=== PATIENT | female | born 2000 | race Caucasian/White ===

== ENCOUNTER 2021-02-09 12:45 | Outpatient (CLI) | payer MEDICAID, SELFPAY ==
[2021-02-09 13:00] VITALS: BP 124/77; PULSE 106
[2021-02-09 13:01] VITALS: RESP 18
[2021-02-09 13:03] VITALS: TEMP 28.4; TEMP 36.2; BMI 36.6
[2021-02-09 13:16] VITALS: BP 117/65; PULSE 103
[2021-02-09 13:31] VITALS: BP 118/67; PULSE 92
[2021-02-09 13:33] LABS: Total Volume, Urine 1400 mL; Urine Total Protein 9.5 mg/24HR (0-150)
== END 2021-02-09 13:50 | disposition home or self-care (01) ==
LOC: OPOB 12:50 → OBGYN 12:51
PROVIDERS: PCP Family Medicine; Visit Provider Family Medicine
DX: O16.9 Unspecified maternal hypertension, unspecified trimester (principal); Z3A.00 Weeks of gestation of pregnancy not specified
CPT/HCPCS: 59025; 84156; 99211

== ENCOUNTER → 2021-03-05 08:37 | Day surgery (SDC) | payer MEDICAID, SELFPAY ==
[2021-03-05 08:50] VITALS: BP 145/88; PULSE 103; RESP 18; TEMP 36.4; O2SAT 99
[2021-03-05 10:15] VITALS: BP 113/63; PULSE 105; RESP 18; TEMP 36.6; O2SAT 98
== END ==
PROVIDERS: PCP Family Medicine; Visit Provider Family Medicine
DX: O26.892 Other specified pregnancy related conditions, second trimester (principal); Z3A.00 Weeks of gestation of pregnancy not specified; Z67.91 Unspecified blood type, Rh negative
CPT/HCPCS: 36415; 36430; 86850; 86900; 90384; 96372

== ENCOUNTER 2021-05-09 18:44 | Outpatient (CLI) | payer MEDICAID, SELFPAY ==
[2021-05-09 18:40] VITALS: RESP 17
[2021-05-09 19:00] VITALS: BMI 37.7
[2021-05-09 19:02] VITALS: BP 121/68; PULSE 87
[2021-05-09 19:17] VITALS: BP 113/63; PULSE 77
[2021-05-09 19:32] VITALS: BP 118/67; PULSE 89
[2021-05-09 19:40] VITALS: BP 118/67; PULSE 89
== END 2021-05-09 19:40 | disposition home or self-care (01) ==
LOC: OPOB 18:45 → OBGYN 18:53
PROVIDERS: PCP Family Medicine; Visit Provider Family Medicine
DX: O26.899 Other specified pregnancy related conditions, unspecified trimester (principal); Z3A.00 Weeks of gestation of pregnancy not specified
CPT/HCPCS: 59025

== ENCOUNTER 2021-05-19 07:50 | Inpatient (IN) | payer MEDICAID, SELFPAY ==
[2021-05-19] VITALS (95 sets, daily range): BP systolic 95–171; BP diastolic 53–98; PULSE 61–125; RESP 16–18; TEMP 36–36.9; O2SAT 96–100; BMI 37.5
[2021-05-19] MEDS: dextrose 5%-lactated ringers 1,000 ML 125 ML IV ×3 (08:45→23:59)
[2021-05-19] MEDS: oxytocin 30 UNIT/500 ML BAG IV (08:45)
[2021-05-19 08:54] LABS: Basophils % 0.2 %; Eosinophils % 0.2 %; Hematocrit 33.9 % (37.0-47.0); Hemoglobin 10.6 g/dL (11.5-15.3); Lymphocytes # 1.2 10^3/uL (1.5-6.5); Lymphocytes % 15.5 %; Mean Corpuscular HGB Conc 31.3 g/dL (30.0-36.0); Mean Corpuscular Hemoglobin 23.8 pg (28.0-34.0); Mean Corpuscular Volume 76.2 fl (81-99); Monocytes # 0.5 10^3/uL (0.2-0.9); Neutrophils # 6.22 10^3/uL (1.8-8.0); Neutrophils % 77.7 %; Nucleated Red Blood Cells % 0 %; Platelet Count 201 10^3/cmm (130-400); Red Blood Count 4.45 10^6/uL (4.1-5.3); Red Cell Distribution Width 14.4 % (12.1-15.1)
[2021-05-19] MEDS: ceFAZolin 1,000 MG in sodium chloride 0.9% (plus) 50 ML 100 MG IV ×2 (16:19→23:59)
[2021-05-19] MEDS: fentaNYL 50 mcg/mL INJ 2mL IVP ×3 (17:21→19:21)
--- NOTE | 2021-05-19 17:37 | PM.OPHPUD ---
Labor & Delivery H&P Update Date of Procedure: May 19, 2021 Date H&P Performed: 05/14/21 Admission Diagnosis: IUP at 39 weeks 2 days gestation Gestational diabetes mellitus, relatively diet controlled Other information: This is a 21-year-old G1, P0 at 39 weeks 2 days gestation who is here for induction secondary to gestational diabetes mellitus, somewhat diet controlled.. The patient was noncomplient in getting her follow-up testing for her abnormal 1 hour GT in a timely fashion. She had work and transportation excuses. when she did finally present for her 3-hour glucose tolerance test she then vomited up the drink. At that point she was 36 weeks 5d gestation and was started on 4 times daily Accu-Cheks. Her Accu-Cheks were somewhat out of range with several fastings greater than 95 and several 1 hour postprandials greater than 140. She began twice weekly NSTs. She was already 38 weeks 5 days gestation and decision was made to go ahead and proceed with induction at 39 weeks.
[2021-05-19] MEDS: lactated ringers 1,000 ML 999 ML IV ×2 (18:03→19:17)
--- NOTE | 2021-05-19 19:27 | ANES.PREANE2 ---
Pre-Anesthetic Assessment Height/Weight: Height 1.6 m Weight 96.162 kg Temp Pulse Resp BP Pulse Ox 97.1 F L 86 16 143/76 100 05/19/21 19:00 05/19/21 19:10 05/19/21 19:21 05/19/21 19:10 05/19/21 17:21 Preop Diagnosis: labor pain epidural Familial anesthetic complications: none Was Beta Jennifer taken within 24 hours: N/A Was Clonidine taken within 24 hours: N/A Social No alcohol and No tobacco Exam alert, oriented x 3, clear to auscultation bilaterally and regular rate & rhythm Airway Submandibular: within normal limits Cervical ROM: within normal limits Mallampati: Class II Dentition: full (poor) History/ROS Other Pulmonary None reported CV/HEM None reported None reported Hepatic None reported GI None reported Metabolic Diabetes Mellitus (Gestational) Musc/skel None reported Neuropsych None reported Anesthetic Plan ASA status: 2 Anesthesia: Regional (specify below) Risk of > 500 ml blood loss (7ml/kg in children): No Medications/Allergies Home Medications Medication Instructions Recorded Confirmed Last Taken Type [id number]-[id number]-[id number]-FA 1 mg 1 tab PO DAILY 03/05/21 05/09/21 05/09/21 08:00 History tablet Allergies Allergy/AdvReac Type Severity Reaction Status Date / Time aspirin Allergy ALGY-Hives Verified 03/05/21 08:53 Penicillins Allergy ADR-Anxiety Verified 05/19/21 09:21 Current Medications Generic Name Dose Route Start Last Admin Trade Name Freq PRN Reason Stop Dose Admin Fentanyl 25 - 100 mcg 05/19/21 13:34 05/19/21 19:21 Fentanyl 50 Mcg/Ml Inj 2ml IVP 75 mcg Q1H PRN Administration SEVERE PAIN Lactated Ringer's 1,000 mls @ 999 mls/hr 05/19/21 08:20 05/19/21 19:17 Lactated Ringers IV 999 mls/hr .Q1H1M PRN Administration BLEEDING Dextrose/Lactated Ringer's 1,000 mls @ 125 mls/hr 05/19/21 08:30 05/19/21 16:20 Dextrose 5%-Lactated Ringers IV 125 mls/hr .Q8H SILVIA Administration Oxytocin 30 unit in 500 mls @ 1 mls/hr 05/19/21 08:30 05/19/21 12:46 Pitocin IV 20 milliunit/min .Q24H SILVIA 20 mls/hr Titration Protocol 1 MILLIUNIT/MIN Cefazolin Sodium 1,000 mg/ 50 mls @ 100 mls/hr 05/19/21 16:30 05/19/21 19:02 Sodium Chloride IV Infused Q8H SILVIA Infusion Protocol Lactated Ringer's 1,000 mls @ 999 mls/hr 05/19/21 17:57 05/19/21 19:12 Lactated Ringers IV Infused .Q1H1M PRN Infusion See label comments PFSH Anesthesia Family History (Updated 05/19/21 @ 09:20 by Lexie Cobb RN) Mother Diabetes Hypertension Father Diabetes Hypertension Female Reproductive History : 1 Data Anesthesia : 05/19/21 08:32 Short CBC 05/19/21 Range/Units 08:32 WBC 8.0 (4.5-13.0) 10^3/uL Hgb 10.6 L (11.5-15.3) g/dL Hct 33.9 L (37.0-47.0) % MCV 76.2 L (81-99) fl Plt Count 201 (130-400) 10^3/cmm Neut % (Auto) 77.7 % Neut # (Auto) 6.22 (1.8-8.0) 10^3/uL Cardiac Studies: No Data to Display
--- NOTE | 2021-05-19 20:00 | ANES.PROC ---
Anesthesia Procedures Procedure/Date: 05/19/21 epidural Procedure Narrative: epidural complete, bolus given, epidural pump initiated with PORTRAIT PHOTOGRAPHER education given, vitals taken during procedure using OBIX system and satisfactory throughout, patient admits to decrease pain, report of procedure to OB RN Epidural: Time Out Performed: Yes Consents Signed: Procedure Consent Consent: requested by attending/covering physician, from patient, risks and benefits reviewed and patient agrees to proceed Lumbar Level: L3-L4 Epidural position: sitting Epidural procedure: sterile prep of area, 1% lidocaine to numb the area (3 mL), 18 g needle, negative for paresthesia passed, neg for paresthesia, test dose given, 1.5% xylocaine 1:200k epi (5 mL), 0.2% Ropivacaine bolus ml (5 mL), placed PCEA, no systemic response, sterile dressing applied, L.U.D. no apparent complications and 0.2% Ropiavacaine @ mls/hr (13 mL/hr)
[2021-05-20] VITALS (32 sets, daily range): BP systolic 96–142; BP diastolic 54–94; PULSE 75–134; RESP 16–17; TEMP 36.6–36.9
--- NOTE | 2021-05-20 04:31 | P.PCNOB_ITS ---
Delivery Note: Date of delivery: May 20, 2021 Pre-delivery diagnoses: IUP at 39 weeks 3 days gestation Gestational diabetes mellitus relatively diet controlled Procedure: Normal vaginal delivery Delivering Physician: Rylee Solano MD Estimated blood loss (mL): 200 Delivery: This is a 21-year-old at 39 weeks 2 days gestation who presented for induction secondary to gestational diabetes mellitus, mostly diet controlled. Her cervix was favorable and she was started on Pitocin. She underwent artificial rupture of membranes with a copious amount of clear fluid. She received an epidural for pain management. She had a normal spontaneous vaginal delivery of a viable female weight 7 pounds 11 ounces, 3480 g over an intact perineum. The infant was suctioned at delivery and placed on the mother's abdomen. The cord was very short. It was clamped and then spontaneously avulsed. The was very gurgly so she was immediately taken to the warmer. Cord blood was obtained. The placenta was then delivered using gentle traction. The placenta was grossly intact and normal to inspection. There was a first-degree right labial laceration that was sutured using 3-0 chromic. Coding Level of Care Code Acute Security Shift Manager for Ty Arellano
[2021-05-20] MEDS: oxytocin 30 UNIT/500 ML BAG 600 UNIT IV (05:04)
[2021-05-20] MEDS: benzocaine-menthol 78 gm Canister 1 SPRAY TOPICAL (05:04)
[2021-05-20] MEDS: lanolin oint 7 gm 1 APPLIC TOPICAL (05:04)
--- NOTE | 2021-05-20 08:10 | PC.NURSE ---
pt up to bathroom with minimal assistance. void not measured with hat, pt states moderate amount. cristine care instruction provided. pad and gown changed.
[2021-05-20] MEDS: docusate sodium 100 mg Capsule PO (09:33)
[2021-05-20] MEDS: ibuprofen 800 mg tablet PO ×2 (09:33→15:59)
[2021-05-20] MEDS: prenatal vitamin Capsule 1 CAP PO (09:34)
--- NOTE | 2021-05-20 13:28 | PC.NURSE ---
pt ambulated to OB9, oriented to room and call light. fresh ice water given.
[2021-05-20 17:03] LABS: Hematocrit 26.1 % (37.0-47.0); Mean Corpuscular HGB Conc 30.7 g/dL (30.0-36.0); Mean Corpuscular Hemoglobin 23.8 pg (28.0-34.0); Mean Corpuscular Volume 77.7 fl (81-99); Mean Platelet Volume 12.6 fL (7.4-10.4); Platelet Count 155 10^3/cmm (130-400); Red Blood Count 3.36 10^6/uL (4.1-5.3); Red Cell Distribution Width 14.7 % (12.1-15.1); White Blood Count 8.1 10^3/uL (4.5-13.0)
[2021-05-21] MEDS: acetaminophen 325 mg Tablet 650 MG PO (03:27)
[2021-05-21 03:29] VITALS: BP 147/87; PULSE 110; TEMP 36.6
[2021-05-21] MEDS: ibuprofen 800 mg tablet PO ×3 (08:58→21:15)
[2021-05-21] MEDS: docusate sodium 100 mg Capsule PO (08:58)
[2021-05-21] MEDS: prenatal vitamin Capsule 1 CAP PO (08:58)
[2021-05-21 10:15] VITALS: BP 138/80; PULSE 80; RESP 18; TEMP 36.7; O2SAT 99
--- NOTE | 2021-05-21 14:08 | ANE.PACU2 ---
Inpatient post-anesthesia follow up: Airway intact: Yes Vital signs: Temperature 98.0 F Pulse Rate 80 Respiratory Rate 18 Blood Pressure 138/80 Pulse Oximetry 99 Oxygen Delivery Me thod Room Air Oxygen Flow Rate Fraction of Inspir ed Oxygen Hydration adequate: Yes Nausea and vomiting: No Pain level: 3 Mental status: Baseline
--- NOTE | 2021-05-21 14:48 | P.PN_ITS ---
Subjective Subjective: The patient is ambulating, tolerating a regular diet, and is wanting to be discharged home. Vitals/I&O/Wt Last Vital Signs Temp 98.0 F 05/21/21 10:15 Pulse 80 05/21/21 10:15 Resp 18 05/21/21 10:15 BP 138/80 05/21/21 10:15 Pulse Ox 99 05/21/21 10:15 05/20/21 05/21/21 05/21/21 22:59 06:59 14:59 Intake Total 0 / 0 Output Total 400 / 750 Balance -400 / -750 0 / -750 Physical Exam Narrative: Alert and oriented, sitting in bed. Pupils equal round reactive to light, extraocular movements intact, heart regular rate and rhythm, lungs clear to auscultation bilaterally, abdomen is soft and nontender, fundus is firm, Urinary Catheter Management: Fragoso Latex: Cath Placed During This Visit: yes, but has since been removed by the nurse Reason for Continuing Indwelling Catheter: Decision to DC Catheter Urinary Catheter Date of Insertion: 05/19/21 Urinary Catheter Time of Insertion: 20:40 Date Urinary Catheter Removed: 05/20/21 Time Urinary Catheter Discontinued: 03:03 Data : 05/20/21 16:50 A&P Assessment and plan (1) Status post normal vaginal delivery: Routine care. Status: Acute Attestations Medical Necessity Statement*: Routine care Coding Level of Care Code Acute Data Entry Machine Operator for Chg Fwd Diagnoses Status post normal vaginal delivery
[2021-05-21 21:20] VITALS: BP 130/84; PULSE 80; RESP 14; O2SAT 100
[2021-05-22 04:00] VITALS: BP 145/91; PULSE 82; RESP 14
[2021-05-22] MEDS: ibuprofen 800 mg tablet PO (08:15)
[2021-05-22] MEDS: prenatal vitamin Capsule 1 CAP PO (08:15)
[2021-05-22] MEDS: docusate sodium 100 mg Capsule PO (08:17)
[2021-05-22 09:19] VITALS: BP 133/84; PULSE 66; RESP 17; TEMP 36.7
--- NOTE | 2021-05-22 13:06 | P.DS_ITS ---
Discharge Providers Date of Admission: 05/19/21 07:50 Date of Discharge: May 22, 2021 Attending Provider at Admission: Rylee Solano MD Attending Provider at Discharge: Rylee Solano MD Primary Care Provider: Emmanuel Freeman MD Diagnoses at Discharge Discharge Diagnosis (1) Status post normal vaginal delivery: Status: Acute Reason for Visit Reason for Visit: gestational hypertension and diabetes Hospital Course Hospital Course This is a 21-year-old G1 now P1 who was admitted for induction at 39 weeks 2 days gestation secondary to diet-controlled gestational diabetes mellitus. She had a normal spontaneous vaginal delivery of a viable female infant. She did well . She was ambulating, tolerating a regular diet, had minimal vaginal bleeding and was requesting discharge home Physical Exam Narrative: Alert and oriented alert and oriented, abdomen is soft and nontender, extremities have nonpitting edema, no calf tenderness. Urinary Catheter Management: Fragoso Latex: Cath Placed During This Visit: yes, but has since been removed by the nurse Reason for Continuing Indwelling Catheter: Decision to DC Catheter Urinary Catheter Date of Insertion: 05/19/21 Urinary Catheter Time of Insertion: 20:40 Date Urinary Catheter Removed: 05/20/21 Time Urinary Catheter Discontinued: 03:03 Discharge Data Studies Completed and Pending Laboratory Results WBC 8.1 10^3/uL (4.5-13.0) 05/20/21 16:50 RBC 3.36 10^6/uL (4.1-5.3) L 05/20/21 16:50 Hgb 8.0 g/dL (11.5-15.3) L 05/20/21 16:50 Hct 26.1 % (37.0-47.0) L 05/20/21 16:50 MCV 77.7 fl (81-99) L 05/20/21 16:50 MCH 23.8 pg (28.0-34.0) L 05/20/21 16:50 MCHC 30.7 g/dL (30.0-36.0) 05/20/21 16:50 RDW 14.7 % (12.1-15.1) 05/20/21 16:50 Plt Count 155 10^3/cmm (130-400) 05/20/21 16:50 MPV 12.6 fL (7.4-10.4) H 05/20/21 16:50 Neut % (Auto) 77.7 % 05/19/21 08:32 Lymph % (Auto) 15.5 % 05/19/21 08:32 [place] % (Auto) 6.0 % 05/19/21 08:32 Eos % (Auto) 0.2 % 05/19/21 08:32 Baso % (Auto) 0.2 % 05/19/21 08:32 Neut # (Auto) 6.22 10^3/uL (1.8-8.0) 05/19/21 08:32 Lymph # (Auto) 1.2 10^3/uL (1.5-6.5) L 05/19/21 08:32 [place] # (Auto) 0.5 10^3/uL (0.2-0.9) 05/19/21 08:32 Eos # (Auto) 0.0 10^3/uL (0.0-0.8) 05/19/21 08:32 Baso # (Auto) 0.0 10^3/uL (0.0-0.1) 05/19/21 08:32 Nucleated RBC % (auto) 0 % 05/19/21 08:32 Nucleated RBCs # 0.0 /100WBC 05/19/21 08:32 Blood Type AB Negative 05/19/21 08:32 Rho(D) Type Negative 05/19/21 08:32 Antibody Screen Negative 05/19/21 08:32 Screen Negative (Negative) 05/20/21 16:50 Vitals Last Vital Signs Temp 98.0 F 05/22/21 09:19 Pulse 66 05/22/21 09:19 Resp 17 05/22/21 09:19 BP 133/84 05/22/21 09:19 Pulse Ox 100 05/21/21 21:20 Discharge Plan Discharge Patient Disposition: Home Condition: Stable Prescriptions: Continued 1 mg Tablet 1 tab PO DAILY 0RF Discharge Orders: Discharge Order (Routine); Ordered 05/22/21 Ordered By: Rylee Solano Referrals: Rylee Solano MD [Physician] - 1 month Discharge Diet: Usual diet Discharge Activity: Limit activity as instructed Patient Instructions: Depression (DC), Bleeding (DC), Preeclampsia and Eclampsia After Delivery (GEN), OB Discharge Report, OB Food/Drug Interaction Guide, OB Care at Home, Opioid Safety, OB Home Care, OB Proud Parent Packet, OB Vaginal Deliveries, Abnormal Bleeding Activity Restrictions/Additional Instructions: NOTHING per vagina for 6 weeks Discharge Attestations Time Spent in Discharge Care*: less than 30 min Quality Metrics Clinical Quality Measures [ No reported AMI, CVA or VTE this stay] Coding Level of Care Code Acute Chg FW DC note Diagnoses Status post normal vaginal delivery
[2021-05-22 14:15] VITALS: BP 132/83; PULSE 99; RESP 18; TEMP 36.7
[2021-05-22 14:20] VITALS: BP 132/83; PULSE 99; RESP 18; TEMP 36.7
== END 2021-05-22 14:20 | disposition home or self-care (01) | DRG 807 ==
LOC: OPOB 08:26 → OBGYN 08:26
PROVIDERS: Admitting Provider Family Medicine; PCP Family Medicine; Visit Provider Family Medicine
DX: O24.420 Gestational diabetes mellitus in childbirth, diet controlled (principal); Z37.0 Single live birth; Z3A.39 39 weeks gestation of pregnancy; O70.0 First degree perineal laceration during delivery; O69.3XX0 Labor and delivery complicated by short cord, not applicable or unspecified
CPT/HCPCS: 36415; 36430; 51702; 59025; 59409; 85025; 85027; 85460; 86850; 86900; 90384; J0690; J2795; J3010

== ENCOUNTER 2024-04-07 16:33 | Emergency (ER) | payer MEDICAID, SELFPAY ==
--- NOTE | 2024-04-07 16:40 | ED_ITS ---
HPI - General: Stated complaint: 10 wk preg spotting Time Seen by Provider: 04/07/24 16:38 History of Present Illness: 24-year-old female G2, P1 presents to [facility] emergency room with complaints of vaginal bleeding Associated symptoms: Deny abdominal pain or dysuria Related Data Home Medications ?Medication ?Instructions ?Recorded ?Confirmed vsrsuyvw-[id number]-Kq-FA 1 mg 1 tab PO DAILY 05/19/21 tablet Allergies Allergy/AdvReac Type Severity Reaction Status Date / Time aspirin Allergy ALGY-Hives Verified 05/19/21 20:49 Penicillins Allergy ADR-Anxiety Verified 05/19/21 20:49 Review of Systems Const: Denies: fever(s) or chills Card: Denies: chest pain Resp: Denies: dyspnea GI: Denies: abdominal pain : Reports: vaginal bleeding; Denies: dysuria, urinary frequency or urinary urgency Musc: Denies: neck pain or back pain Skin/Breast: Denies: rash PFSH ED PFSH: Family History Mother Diabetes Hypertension Father Diabetes Hypertension Physical Exam Const: COMMON NORMALS: no acute distress GENERAL APPEARANCE: cooperative and comfortable ORIENTATION/CONSCIOUSNESS: Yes awake, Yes oriented to person, Yes oriented to place and Yes oriented to time HENMT: COMMON NORMALS: normocephalic, atraumatic and hearing grossly normal bilaterally HEAD & SCALP: normocephalic and atraumatic Resp: COMMON NORMALS: normal respiratory effort, No retractions, No use of accessory muscles and clear to auscultation bilaterally AUSCULTATION: clear to auscultation bilaterally Cardio: COMMON NORMALS: regular rate, regular rhythm and No murmurs present (Cardio) RATE: regular rate RHYTHM: regular rhythm GI: COMMON NORMALS: Soft to palpation and No hepatosplenomegaly present AUSCULTATION: Yes normoactive bowel sounds PALPATION: Yes Soft to palpation, No Tenderness to palpation present (GI), No Guarding due to palpation present (GI) and Yes No hepatosplenomegaly present Extremity: COMMON NORMALS: normal to inspection, capillary refill normal, no clubbing, cyanosis or edema, no calf tenderness and no pedal edema Neuro: SENSORIUM/ORIENTATION: Yes oriented to person, Yes oriented to place and Yes oriented to time Skin: COMMON NORMALS: no rashes or lesions noted GENERAL SKIN EXAM: no rashes or lesions noted MDM - OB/Uterine Contractions Medical Records I reviewed the patient's medical records. Lab Data I reviewed the patient's lab results. Discharge Plan Discharge Condition: Stable Prescriptions: No Action bjpruclu-kjz-Qp-FA 1 mg Tablet 1 tab PO DAILY Referrals: Emmanuel Freeman MD [Primary Care Provider] - Print Language: [place] Citizen Coding Level of Care Code ED Sales Representative Sales Manager for Ty Arellano
[2024-04-07 16:41] VITALS: BP 120/67; PULSE 80; RESP 14; TEMP 36.8; O2SAT 96; BMI 34.5
--- NOTE | 2024-04-07 16:57 | ED_ITS ---
HPI - 2 General: Chief complaint: Vaginal Bleeding Stated complaint: 10 wk preg spotting Time Seen by Provider: 04/07/24 16:38 Source: patient Mode of arrival: ambulatory Limitations: no limitations History of Present Illness: 24-year-old female who states that she i s currently roughly 10 weeks . She states she has an OB appointment next week but has not seen OB yet states that today she started having some vaginal bleeding she denies any abdominal pain denies any fever. She denies passing any clots she denies any worse or improving factors. Associated symptoms: Deny abdominal pain, headache(s), nausea or vomiting Related Data : 2 Home Medications ?Medication ?Instructions ?Recorded ?Confirmed dxmhspqm-kkx-Py-FA 1 mg 1 tab PO DAILY 05/19/21 tablet Allergies Allergy/AdvReac Type Severity Reaction Status Date / Time aspirin Allergy ALGY-Hives Verified 04/07/24 16:45 Penicillins Allergy ADR-Anxiety Verified 04/07/24 16:45 Review of Systems 2 Const: Denies: fever(s), chills, body aches or change in appetite ENMT: Denies: throat pain or dental pain Card: Denies: chest pain Resp: Denies: dyspnea GI: Denies: abdominal pain, nausea, vomiting or diarrhea : Reports: vaginal bleeding Musc: Denies: neck pain or back pain Skin/Breast: Denies: rash Neuro: Denies: headache(s) PFSH ED 2 PFSH: Family History Mother Diabetes Hypertension Father Diabetes Hypertension Female Reproductive History: : 2 Physical Exam 2 Const: COMMON NORMALS: no acute distress, patient oriented x3 and healthy appearing HENMT: COMMON NORMALS: normocephalic and atraumatic HEAD & SCALP: n ormocephalic and atraumatic Eye: COMMON NORMALS: conjunctivae normal CONJUNCTIVA: Yes conjunctivae normal Neck/C-Spine: COMMON NORMALS: full ROM and supple Chest: COMMONS NORMALS: normal inspection of the chest Resp: COMMON NORMALS: normal respiratory effort Cardio: COMMON NORMALS: regular rate, regular rhythm and No murmurs present (Cardio) RATE: regular rate RHYTHM: regular rhythm GI: COMMON NORMALS: Normal to inspection, nondistended, normoactive bowel sounds present, Soft to palpation, non-tender and no masses PALPATION: Yes Soft to palpation Extremity: COMMON NORMALS: normal to inspection and full ROM Neuro: COMMON NORMALS: patient oriented x3, moves all extremities and no focal motor deficits Psych: COMMON NORMALS: mental status grossly normal, Normal thought process present and cooperative THOUGHT PROCESS: Normal thought process present Skin: COMMON NORMALS: no rashes or lesions noted and no wounds GENERAL SKIN EXAM: no rashes or lesions noted Course 2 Vital Signs: Vital signs: Vital Signs Temperature 98.2 F 04/07/24 16:41 Pulse Rate 80 04/07/24 16:41 Respiratory Rate 14 04/07/24 16:41 Blood Pressure 120/67 04/07/24 16:41 Pulse Oximetry 96 04/07/24 16:41 Oxygen Delivery Me thod Room Air 04/07/24 16:41 MDM - OB/Uterine Contractions Medical Decision Making Patient presents with a threatened miscarriage bedside ultrasound here was normal showed an IUP roughly 9 to 10 weeks heart rate was in the 140s she has no signs of ectopic she is stable for discharge she is to follow- up with her PCP check she has OB follow-up next week. She is return if worsening she understands agrees to plan. Medical Records I reviewed the patient's medical records. Lab Data I reviewed the patient's lab results. 04/07/24 16:58 Laboratory Results WBC 4.91 10^3/uL (3.29-11.43) 04/07/24 16:58 RBC 4.62 10^6/uL (3.85-5.65) 04/07/24 16:58 Hgb 10.10 g/dL (11.27-16.99) L 04/07/24 16:58 Hct 33.2 % (36-47) L 04/07/24 16:58 MCV 71.9 fl (85-98) L 04/07/24 16:58 MCH 21.9 pg (27-33) L 04/07/24 16:58 MCHC 30.4 g/dL (30-55) 04/07/24 16:58 RDW 18.6 % (12.1-15.1) H 04/07/24 16:58 Plt Count 188 10^3/cmm (157-399) 04/07/24 16:58 MPV 10.0 fL (7.4-10.4) 04/07/24 16:58 Neut % (Auto) 63.7 % 04/07/24 16:58 Lymph % (Auto) 26.5 % 04/07/24 16:58 [place] % (Auto) 8.8 % 04/07/24 16:58 Eos % (Auto) 0.4 % 04/07/24 16:58 Baso % (Auto) 0.4 % 04/07/24 16:58 Neut # (Auto) 3.13 10^3/uL (1.8-7.7) 04/07/24 16:58 Lymph # (Auto) 1.3 10^3/uL (0.8-4.8) 04/07/24 16:58 [place] # (Auto) 0.4 10^3/uL (0.2-0.9) 04/07/24 16:58 Eos # (Auto) 0.0 10^3/uL (0.0-0.8) 04/07/24 16:58 Baso # (Auto) 0.0 10^3/uL (0.0-0.1) 04/07/24 16:58 Nucleated RBC % (auto) 0 % 04/07/24 16:58 Nucleated RBCs # 0.0 /100WBC 04/07/24 16:58 Ser , Semi-Qnt 05498.00 mIU/mL 04/07/24 16:58 Blood Type AB Negative 04/07/24 16:58 Rho(D) Type Cancelled 04/07/24 16:58 Rho(D) Type Rh negative 04/07/24 16:58 Antibody Screen Negative 04/07/24 16:58 No radiology studies performed this visit Discharge Plan Discharge Patient Disposition: Home Clinical Impression: Threatened miscarriage Condition: Stable Prescriptions: No Action pwltxrfk-jjc-Eh-FA 1 mg Tablet 1 tab PO DAILY Discharge Orders: Discharge ED (Routine); Ordered 04/07/24 Ordered By: Shawn Rosas Referrals: Emmanuel Freeman MD [Primary Care Provider] - Discharge Diet: Advance as tolerated Discharge Activity: Resume usual activity Patient Instructions: Threatened Miscarriage (ED) Print Language: [place] Coding Level of Care Code ED Beam House Inspector for Jujug Adan
[2024-04-07 17:08] LABS: Basophils % 0.4 %; Eosinophils % 0.4 %; Hematocrit 33.2 % (36-47); Lymphocytes # 1.3 10^3/uL (0.8-4.8); Lymphocytes % 26.5 %; Mean Corpuscular HGB Conc 30.4 g/dL (30-55); Mean Corpuscular Hemoglobin 21.9 pg (27-33); Mean Corpuscular Volume 71.9 fl (85-98); Monocytes # 0.4 10^3/uL (0.2-0.9); Monocytes % 8.8 %; Neutrophils # 3.13 10^3/uL (1.8-7.7); Neutrophils % 63.7 %; Nucleated Red Blood Cells % 0 %; Platelet Count 188 10^3/cmm (157-399); Red Blood Count 4.62 10^6/uL (3.85-5.65); Red Cell Distribution Width 18.6 % (12.1-15.1); White Blood Count 4.91 10^3/uL (3.29-11.43)
[2024-04-07 18:15] VITALS: PULSE 82; O2SAT 97
[2024-04-07] MEDS: rho(d) immune globulin 1,500 unit Syringe 1500 UNIT IM (19:12)
== END 2024-04-07 19:21 | disposition home or self-care (01) ==
PROVIDERS: Family Medicine; Emergency Provider Emergency Medicine; PCP Family Medicine
DX: O20.0 Threatened abortion (principal); Z3A.10 10 weeks gestation of pregnancy
CPT/HCPCS: 84702; 85025; 86850; 86900; 96372; 99284; J2790